=== PATIENT | male | born 1965 | race Caucasian/White ===

== ENCOUNTER 2017-05-18 | Emergency (ER) | payer SELFPAY ==
--- NOTE | 2017-05-18 09:14 | ER ---
Nurse's Notes [facility] Name: Pancho Alejandro Age: 52 yrs Sex: Male : 1965 Arrival Date: 05/18/2017 Time: 08:41 Bed 19 Private MD: Diagnosis: Other local infections of skin and subcutaneous tissue Presentation: 05/18 08:55 Presenting complaint: Patient states: abscess to R arm and R groin x 3 weeks. Pt ss reports this is a recurring issue and he was supposed to follow up with a surgeon, but never got around to it. Transition of care: patient was not received from another setting of care. Onset of symptoms is unknown. Care prior to arrival: None. 08:55 Method Of Arrival: Ambulatory ss 08:55 Acuity: ADDY 4 ss Historical: - Allergies: 08:57 PENICILLINS; ss - Home Meds: 09:00 Allergy Oral [Active]; Ambien 10 mg Oral tab 1 tab once daily [Active]; Glimepiride rb1 Oral [Active]; Metformin Oral [Active]; Rifampin Oral [Active]; - PMHx: 08:57 Diabetes - NIDDM; TIA; ss - PSHx: 08:57 R wrist; ss - Immunization history:: Adult Immunizations unknown. - Social history:: Smoking status: Patient uses tobacco products, chewing tobacco. Screenin:00 Abuse screen: Denies threats or abuse. Nutritional screening: No deficits noted. rb1 Tuberculosis screening: No symptoms or risk factors identified. Fall Risk None identified. Assessment: 09:00 General: Appears in no apparent distress. comfortable, Behavior is calm, cooperative. rb1 Pain: Complains of pain in dorsal aspect of right forearm Pain currently is 7 out of 10 on a pain scale. Neuro: Level of Consciousness is awake, alert, obeys commands, Oriented to person, place, time, situation. Cardiovascular: Capillary refill < 3 seconds is brisk in bilateral fingers. Respiratory: Airway is patent Respiratory effort is even, unlabored, Respiratory pattern is regular, symmetrical. GI: No signs and/or symptoms were reported involving the gastrointestinal system. : No signs and/or symptoms were reported regarding the genitourinary system. Derm: Skin is pink, warm \T\ dry. Two boils, per provider noted to the right forearm. Musculoskeletal: Range of motion: intact in all extremities. Vital Signs: 08:57 BP 159 / 89; Pulse 94; Resp 16; Temp 98.1(O); Pulse Ox 100% on R/A; Weight 96.62 kg; ss Height 5 ft. 11 in. (180.34 cm); Pain 7/10; 08:57 Body Mass Index 29.71 (96.62 kg, 180.34 cm) ED Course: 08:41 Patient arrived in ED. as 08:56 Triage completed. 08:57 Arm band placed on right wrist. 08:58 Levon Lopez PA is PHCP. cp 08:58 Daryn Silvestre MD is Attending Physician. cp 08:58 Do Carson, RN is Primary Nurse. rb1 09:00 Patient has correct armband on for positive identification. Bed in low position. Call rb1 light in reach. Side rails up X 1. Pulse ox on. NIBP on. 09:25 No provider procedures requiring assistance completed. Patient did not have IV access rb1 during this emergency room visit. Administered Medications: No medications were administered Outcome: 09:13 Discharge ordered by . cp 09:25 Discharged to home ambulatory. rb1 09:25 Condition: stable 09:25 Discharge instructions given to patient, Instructed on discharge instructions, follow up and referral plans. medication usage, Demonstrated understanding of instructions, follow-up care, medications, Prescriptions given X 1. 09:26 Patient left the ED. rb1 Signatures: Lori Santoro Shelby, RN RN Levon Lopez PA PA cp Do Carson, RN RN rb1
--- NOTE | 2017-05-18 09:14 | EDPHYS ---
Physician Documentation [facility] Name: Pancho Alejandro Age: 52 yrs Sex: Male : 1965 Arrival Date: 05/18/2017 Time: 08:41 Bed 19 Private MD: ED Physician Daryn Silvestre HPI: 05/18 09:07 This 52 yrs old Male presents to ER via Ambulatory with complaints of Boil. cp 09:07 possible abscess. cp 09:07 Description: erythematous. Onset: The symptoms/episode began/occurred 2-3 weeks ago. cp Associated signs and symptoms: Pertinent negatives: discharge, drainage, fever. Patient c/o of possible abscess on right arm and right groin area. Historical: - Allergies: 08:57 PENICILLINS; ss - Home Meds: 09:00 Allergy Oral [Active]; Ambien 10 mg Oral tab 1 tab once daily [Active]; Glimepiride rb1 Oral [Active]; Metformin Oral [Active]; Rifampin Oral [Active]; - PMHx: 08:57 Diabetes - NIDDM; TIA; ss - PSHx: 08:57 R wrist; ss - Immunization history:: Adult Immunizations unknown. - Social history:: Smoking status: Patient uses tobacco products, chewing tobacco. ROS: 09:09 Eyes: Negative for injury, pain, redness, and discharge. cp 09:09 Constitutional: Negative for body aches, chills, poor PO intake. 09:09 ENT: Negative for drainage from ear(s), ear pain, sore throat, difficulty swallowing, difficulty handling secretions. 09:09 Cardiovascular: Negative for chest pain, edema, palpitations. 09:09 Respiratory: Negative for cough, shortness of breath, wheezing. 09:09 Skin: Positive for rash, of the right arm. 09:09 All other systems are negative. Exam: 09:10 Head/Face: Normocephalic, atraumatic. cp 09:10 Constitutional: The patient appears in no acute distress, alert, awake, non-toxic, well developed, well nourished. 09:10 Eyes: Periorbital structures: appear normal, Conjunctiva: normal, no exudate, no cp injection, Lids and lashes: appear normal, bilaterally. 09:10 ENT: External ear(s): are unremarkable, Nose: is normal, Mouth: is normal. 09:10 Chest/axilla: Inspection: normal. cp 09:10 Cardiovascular: Rate: normal, Rhythm: regular. 09:10 Respiratory: the patient does not display signs of respiratory distress, Respirations: normal, no use of accessory muscles, no retractions, no splinting, no tachypnea. 09:10 Skin: noted erythematous papule with minimal erythema right forearm, no drainage expressed. Vital Signs: 08:57 BP 159 / 89; Pulse 94; Resp 16; Temp 98.1(O); Pulse Ox 100% on R/A; Weight 96.62 kg; ss Height 5 ft. 11 in. (180.34 cm); Pain 7/10; 08:57 Body Mass Index 29.71 (96.62 kg, 180.34 cm) ss MDM: 08:58 Patient medically screened. cp 09:08 Differential diagnosis: abscess, cellulitis, MRSA, folliculitis. cp 09:13 Data reviewed: vital signs, nurses notes, and as a result, I will discharge patient. cp 09:13 Counseling: I had a detailed discussion with the patient and/or guardian regarding: the cp historical points, exam findings, and any diagnostic results supporting the discharge/admit diagnosis, to return to the emergency department if symptoms worsen or persist or if there are any questions or concerns that arise at home. Administered Medications: No medications were administered Disposition: 05/18/17 09:13 Discharged to Home. Impression: Other local infections of skin and subcutaneous tissue. - Condition is Stable. - Prescriptions for Bactroban 2 % Topical Ointment - Apply to affected area 1 application by TOPICAL route every 12 hours; 15 gram. - Medication Reconciliation Form, Thank You Letter, Antibiotic Education, Prescription Opioid Use form. - Follow up: Private Physician; When: 1 - 2 days; Reason: Worsening of condition. - Problem is new. - Symptoms are unchanged. Addendum: 05/21/2017 19:17 Co-signature as Attending Physician, Daryn Silvestre MD I agree with the assessment and w a plan of care. Signatures: Ame Barry RN RN Levon Lopez PA PA cp Barber, Rebecca, RN RN [facility] Daryn Silvestre MD MD co
== END 2017-05-18 09:26 | disposition home or self-care (01) ==
CPT/HCPCS: 99283

== ENCOUNTER 2020-11-23 10:20 | Emergency (ER) | payer SELFPAY ==
--- NOTE | 2020-11-23 12:38 | ER ---
Nurse's Notes [facility] Name: Pancho Alejandro Age: 55 yrs Sex: Male : 1965 Arrival Date: 11/23/2020 Time: 10:22 Bed 12 Private MD: Reinaldo Altamirano T Diagnosis: Pain in right ankle and joints of right foot Presentation: 11/23 10:34 Chief complaint: Patient states: R ankle pain and swelling for 5 days. Unknown specific ll1 injury. Already saw Dr. Altamirano, has been elevating it since. Coronavirus screen: Vaccine status: Patient reports being unvaccinated. Client denies travel out of the [place] in the last 14 days. At this time, the client does not indicate any symptoms associated with coronavirus-19. Ebola Screen: Patient denies travel to an Ebola-affected area in the 21 days before illness onset. Initial Sepsis Screen: Does the patient meet any 2 criteria? No. Patient's initial sepsis screen is negative. Does the patient have a suspected source of infection? No. Patient's initial sepsis screen is negative. Risk Assessment: Do you want to hurt yourself or someone else? Patient reports no desire to harm self or others. Onset of symptoms was November 18, 2020. 10:34 Method Of Arrival: Ambulatory ll1 10:34 Acuity: ADDY 4 ll1 Historical: - Allergies: 10:34 PENICILLINS; ll1 10:48 Tylenol-Codeine #3; vg1 - PMHx: 10:34 Diabetes - NIDDM; CHRONIC LOW BACK PAIN; TIA; ll1 - PSHx: 10:34 None; ll1 - Immunization history:: Client reports having NOT received the Covid vaccine. - Social history:: Smoking status: Patient denies any tobacco usage or history of. Screenin:48 Abuse screen: Denies threats or abuse. Nutritional screening: No deficits noted. vg1 Tuberculosis screening: No symptoms or risk factors identified. Fall Risk No fall in past 12 months (0 pts). No secondary diagnosis (0 pts). No IV (0 pts). Ambulatory Aid- Crutches/Cane/Walker (15 pts). Gait- Normal/Bed Rest/Wheelchair (0 pts) Mental Status- Oriented to own ability (0 pts). Total Figueroa Fall Scale indicates No Risk (0-24 pts). Assessment: 10:47 General: Appears in no apparent distress. comfortable, Behavior is calm, cooperative. vg1 Pain: Complains of pain in dorsum of right foot Pain currently is 8 out of 10 on a pain scale. Pain began 11/18/20. Neuro: Level of Consciousness is awake, alert, obeys commands, Oriented to person, place, time, situation. Cardiovascular: Capillary refill < 3 seconds in bilateral toes Pulses are palpable in right dorsalis pedis artery and left dorsalis pedis artery. Respiratory: Airway is patent Respiratory effort is even, unlabored. GI: No signs and/or symptoms were reported involving the gastrointestinal system. : No signs and/or symptoms were reported regarding the genitourinary system. EENT: No signs and/or symptoms were reported regarding the EENT system. Derm: Skin is intact, is healthy with good turgor. Musculoskeletal: Circulation, motion, and sensation intact. Swelling present in dorsum of right foot. 11:57 Reassessment: Patient appears in no apparent distress at this time. No changes from vg1 previously documented assessment. Patient and/or family updated on plan of care and expected duration. Pain level reassessed. Patient is alert, oriented x 3, equal unlabored respirations, skin warm/dry/pink. Vital Signs: 10:34 BP 177 / 89; Pulse 89; Resp 16; Temp 98.8; Pulse Ox 99% ; Weight 89.81 kg; Height 5 ft. ll1 11 in. (180.34 cm); Pain 8/10; 11:57 BP 153 / 72; Pulse 80; Resp 16; Pulse Ox 100% ; vg1 10:34 Body Mass Index 27.62 (89.81 kg, 180.34 cm) ll1 ED Course: 10:22 Patient arrived in ED. mr 10:22 Reinaldo Altamirano MD is Private Physician. mr 10:34 Arm band placed on Patient placed. ll1 10:37 Triage completed. ll1 10:40 Marya Norton, ARVIN is Primary Nurse. vg1 10:48 Patient has correct armband on for positive identification. Bed in low position. Call vg1 light in reach. 10:48 No provider procedures requiring assistance completed. vg1 11:00 Farhan Landers NP is PHCP. pm1 11:00 Sarah Deras MD is Attending Physician. pm1 12:38 Foot Right 3 View XRAY In Process Unspecified. EDMS 12:47 Patient did not have IV access during this emergency room visit. vg1 Administered Medications: No medications were administered Outcome: 12:37 Discharge ordered by . pm1 12:47 Discharged to home ambulatory, with family. vg1 12:47 Condition: stable 12:47 Instructed on discharge instructions, follow up and referral plans. Demonstrated understanding of instructions, follow-up care. 12:48 Patient left the ED. vg1 Signatures: Dispatcher [employer] EDAZ Nadeem Beth LeesaFarhan, FINAL FINISHER FINAL FINISHER pm1 Marya Norton, RN RN vg1 Wendy Sanchez RN RN ll1 Corrections: (The following items were deleted from the chart) 11:11 10:47 Cardiovascular: Capillary refill < 3 seconds in bilateral toes Pulses are vg1 palpable in right dorsalis pedis artery and left dorsalis pedis artery vg1 11:11 10:47 Musculoskeletal: Circulation, motion, and sensation intact. vg1 vg1
--- NOTE | 2020-11-23 12:38 | EDPHYS ---
Physician Documentation [facility] Name: Pancho Alejandro Age: 55 yrs Sex: Male : 1965 Arrival Date: 11/23/2020 Time: 10:22 Bed 12 Private MD: Reinaldo Altamirano T ED Physician Sarah Deras HPI: 11/23 12:20 This 55 yrs old Male presents to ER via Ambulatory with complaints of Feet pm1 Swelling. 12:20 The patient presents with Swelling and pain to lateral aspect of right foot. Context: pm1 The problem was sustained at an unknown location, resulted from an unknown cause, Mechanism of Injury: Unknown the patient is not able to bear weight, the patient is not able to ambulate. Onset: The symptoms/episode began/occurred 5 day(s) ago. Modifying factors: The symptoms are alleviated by elevation of extremity, the symptoms are aggravated by weight bearing, wearing shoes. Associated signs and symptoms: Pertinent positives: swelling, Pertinent negatives: calf tenderness, numbness, tingling. Severity of symptoms: in the emergency department the symptoms are unchanged. The patient has not experienced similar symptoms in the past. The patient has not recently seen a physician. Historical: - Allergies: 10:34 PENICILLINS; ll1 10:48 Tylenol-Codeine #3; vg1 - PMHx: 10:34 Diabetes - NIDDM; CHRONIC LOW BACK PAIN; TIA; ll1 - PSHx: 10:34 None; ll1 - Immunization history:: Client reports having NOT received the Covid vaccine. - Social history:: Smoking status: Patient denies any tobacco usage or history of. ROS: 12:20 MS/extremity: Positive for pain, swelling, tenderness, of the lateral side of right pm1 foot, Negative for deformity. 12:20 Constitutional: Negative for fever, chills, and weight loss, Cardiovascular: Negative for chest pain, palpitations, and edema, Respiratory: Negative for shortness of breath, cough, wheezing, and pleuritic chest pain. 12:20 Skin: Negative for injury, rash, and discoloration, Neuro: Negative for headache, weakness, numbness, tingling, and seizure. 12:20 All other systems are negative. Exam: 12:20 Constitutional: This is a well developed, well nourished patient who is awake, alert, pm1 and in no acute distress. Head/Face: Normocephalic, atraumatic. 12:20 Skin: Warm, dry with normal turgor. Normal color with no rashes, no lesions, and no evidence of cellulitis. 12:20 Cardiovascular: Exam negative for acute changes, Rate: normal, Rhythm: regular, Pulses: no pulse deficits are appreciated. 12:20 Respiratory: Exam negative for acute changes, respiratory distress, shortness of breath. 12:20 Musculoskeletal/extremity: Extremities: grossly normal except: noted in the lateral side of right foot: swelling, tenderness, ROM: no acute changes, Circulation is intact in all extremities. 12:20 Neuro: Exam negative for acute changes, Orientation: is normal, Mentation: is normal, Motor: is normal, moves all fours, Sensation: no obvious gross deficits. Vital Signs: 10:34 BP 177 / 89; Pulse 89; Resp 16; Temp 98.8; Pulse Ox 99% ; Weight 89.81 kg; Height 5 ft. ll1 11 in. (180.34 cm); Pain 8/10; 11:57 BP 153 / 72; Pulse 80; Resp 16; Pulse Ox 100% ; vg1 10:34 Body Mass Index 27.62 (89.81 kg, 180.34 cm) ll1 MDM: 11:06 Patient medically screened. pm1 11:12 ED course: Patient reports 8/10 pain to lateral aspect right foot. Patient offered pain pm1 medications, patient refused. 12:20 ED course: Patient pending official radiologist read. My impression possible healing pm1 line present to left fifth proximal metatarsal area. Coincides with area of tenderness. 12:20 ED course: Patient does not want to wait for radiologist read. Patient's preference is pm1 a walking boot and he wants go home now and to be called with results. 12:21 Data reviewed: vital signs. Data interpreted: Pulse oximetry: on room air is 100 %. pm1 Interpretation: normal. 12:21 Counseling: I had a detailed discussion with the patient and/or guardian regarding: the pm1 historical points, exam findings, and any diagnostic results supporting the discharge/admit diagnosis, radiology results, the need for outpatient follow up, a special event assistant, to return to the emergency department if symptoms worsen or persist or if there are any questions or concerns that arise at home. 09/25 11:11 Order name: Foot Right 3 View XRAY; Complete Time: 14:12 pm1 11/23 12:20 Order name: Walking boot; Complete Time: 12:39 pm1 Administered Medications: No medications were administered Disposition: 17:42 Co-signature as Attending Physician, Sarah Deras MD PA/AUTOMOTIVE SALES EXECUTIVE's history reviewed, ma2 patient interviewed, and examined. I agree with assessment and care plan and confirm the diagnosis (es) above. Disposition Summary: 11/23/20 12:37 Discharge Ordered Location: Home pm1 Problem: new pm1 Symptoms: have improved pm1 Condition: Stable pm1 Diagnosis - Pain in right ankle and joints of right foot pm1 Followup: pm1 - With: Emergency Department - When: As needed - Reason: Worsening of condition Followup: pm1 - With: Private Physician - When: 2 - 3 days - Reason: Recheck today's complaints, Continuance of care, Re-evaluation by your physician Discharge Instructions: - Discharge Summary Sheet pm1 - Cast or Splint Care, Adult pm1 - Foot Sprain pm1 Forms: - Medication Reconciliation Form pm1 - Thank You Letter pm1 - Antibiotic Education pm1 - Prescription Opioid Use pm1 - Work release form vg1 Signatures: Dispatcher [employer] Farhan Hu, AUTOMOTIVE SALES EXECUTIVE AUTOMOTIVE SALES EXECUTIVE pm1 Sarah Deras MD MD ma2 Marya Norton RN RN vg1 Wendy Sanchez RN RN ll1
--- NOTE | 2020-11-23 12:48 | RAD REPORT ---
EXAM DESCRIPTION: RAD - Foot Right 3 View - 11/23/2020 12:38 pm CLINICAL HISTORY: PAIN COMPARISON: No comparisons FINDINGS: No fracture or dislocation seen. Mild hallux valgus noted. Mild atherosclerosis.
[2020-11-23 13:13] VITALS: TEMP 98.8
[2020-11-23 13:15] VITALS: BP 153/72; O2SAT 100
== END 2020-11-23 12:48 | disposition home or self-care (01) ==
LOC: ER 10:20
DX: M25.571 Pain in right ankle and joints of right foot (principal); Z88.0 Allergy status to penicillin; Z88.6 Allergy status to analgesic agent
CPT/HCPCS: 99283